=== PATIENT | male | born 1960 | race African-American/Black ===

== ENCOUNTER 2017-01-22 03:13 | Inpatient (IN) | payer OTHER ==
--- NOTE | ~2017-01-22 | CO ---
Unit #: [id number] #: [id number] Patient: ANNEMARIE CORONADO [id number] [facility]. [place], [place] [address] [id number] I MR#: [id number] NAME: ANNEMARIE CORONADO ROOM: 576 Age: 56 Sex: M Admission Date: 01/22/2017 : 1960 Attending Physician: Martha Brady M.D. Primary Care Physician: Fer Wheeler M.D. CONSULTATION REPORT JOB NOTE: CC: [facility] CARDIOLOGY. REASON FOR CONSULTATION Nonsustained ventricular tachycardia. HISTORY OF PRESENT ILLNESS This is a 56-year-old male, who presented to the emergency room with a complaint of abdominal pain. He developed diffuse abdominal pain on Sunday night. He had nausea and was unable to eat or drink. He later vomited nonbloody emesis. He eventually came to the emergency room for evaluation, where he was found to have acute pancreatitis. There was elevation of his amylase and lipase levels. During the course of his stay, he had an 8-beat run of nonsustained ventricular tachycardia. The patient was unaware of palpitations. He did have a magnesium level that was low at 1.5. He denies history of hypertension, hyperlipidemia, or diabetes. He states he has occasional sharp substernal chest pain that is worse with cough and deep breathing. He also has chest pain when working, where he contributes to muscle pain. He is usually fairly active. Troponin is initially negative with no acute ischemic changes on his EKG. PAST MEDICAL HISTORY 1. Nicotine abuse. 2. ETOH abuse. 3. EGD/colonoscopy in 11/2016 with moderate prepyloric antral erosive gastritis. Dilatation of the distal esophagus mucosal ring. Mild diverticulosis. Moderate diffuse duodenitis. PAST SURGICAL HISTORY No previous surgeries. SOCIAL HISTORY The patient is . He works as a warehouse attendant. Smokes a half a pack of cigarettes daily since a teenager. He admits to drinking 12 to 14 beers a day. Denies illicit drug use. FAMILY HISTORY Mother at her early age from gunshot wound. Father had cancer. No coronary artery disease in his siblings. ALLERGIES No known drug allergies. HOME MEDICATIONS Unit #: [id number] #: [id number] Patient: ANNEMARIE CORONADO Protonix 40 mg daily. REVIEW OF SYSTEMS CONSTITUTIONAL: Negative for fever or chills. Has no weight gain or weight loss. HEENT: No headache. No vision changes or difficulty with swallowing. No dizziness. CARDIOVASCULAR: Has chest pain as described in the HPI. Unaware of palpitations. No paroxysmal nocturnal dyspnea or orthopnea. Denies syncope or near syncope. RESPIRATORY: Negative for dyspnea, cough, or hemoptysis. GASTROINTESTINAL: Positive for abdominal pain, nausea, and vomiting nonbloody emesis. No melena. EXTREMITIES: Negative for lower extremity edema. PHYSICAL EXAMINATION VITAL SIGNS: Blood pressure 147/85, heart rate 83, temperature 97.6, BMI 22. GENERAL: This is a pleasant 56-year-old male, who is in no acute respiratory distress. NEUROLOGIC: He is awake, alert, and oriented. There were no focal weaknesses. NECK: Trachea is midline. No thyromegaly or lymphadenopathy. No jugular venous distention. HEART: S1, S2. Heart sounds are normal. No murmurs, rubs, or clicks. Regular rate and rhythm. LUNGS: Clear without rales, rhonchi, or wheezes. ABDOMEN: Soft and nontender with bowel sounds are present. EXTREMITIES: Without leg edema. SKIN: Warm and dry. DIAGNOSTIC STUDIES LABORATORY RESULTS: Glucose 96, BUN 5, creatinine 0.8. Sodium 137, potassium 3.5, magnesium 1.5, amylase 149, and lipase 116, troponin less than 0.05. White count 8.5, hemoglobin 11.4, hematocrit 34.2, and platelet count is 189. IMAGING STUDIES: Diagnostic imaging of the abdomen shows common bile duct dilatation up to 11 mm. CARDIOVASCULAR STUDIES: EKG; normal sinus rhythm with a rate of 80 beats per minute, otherwise normal. IMPRESSION 1. Acute pancreatitis secondary to EtOH abuse. 2. Nonsustained ventricular tachycardia. 3. Atypical chest pain. 4. Hypomagnesemia. 5. Nicotine abuse. PLAN 1. Cardiology was consulted for ventricular tachycardia. Ventricular arrhythmias may be secondary to electrolyte imbalance. We will replace potassium and magnesium. 2. Because of the patient's heavy alcohol use, we will evaluate echocardiogram for alcoholic cardiomyopathy. 3. TSH and lipid profile will be obtained. 4. Plan for Lexiscan Cardiolite stress test in a.m. Unit #: [id number] #: [id number] Patient: ANNEMARIE CORONADO 5. Start on beta-iris for rate control. 6. Watch for EtOH withdrawal. 7. Encourage the patient to quit smoking and to quit alcohol abuse. 8. We will follow the patient with you. Thank you for allowing us to assist in this patient's care. Dictated by... Josey Lawson/sebastian TD: 01/24/2017 05:30 JOB #: [id number] Jana Jay M.D. CONSULTATION REPORT Page 1 of 1 X Jose Angel Grossman APRN X CONSULTATION REPORT
--- NOTE | ~2017-01-22 | US6 ---
[facility] A Service of [facility] RADIOLOGY TEXT RESULTS PATIENT: ANNEMARIE CORONADO LOCATION: Psychiatric 576-01 : [birth year] UNIT #: [id number] AGE: [address]: Martha Brady MD SEX: M ORDER DR: [id number] [facility] [address] [facility]. [place], [place] [address] [id number] I MR#: [id number] Acc #: [id number] NAME: ANNEMARIE CORONADO : 1960 SEX: M STUDY DATE/TIME: 01/22/2017 16:08 UNIT: Psychiatric ROOM: 6 STUDY DESCRIPTION: US Abdominal Limited Attending Physician: Martha Brady M.D. Ordering Physician: Pierre Del Toro M.D. Primary Care Physician: Fer Wheeler M.D. MEDICAL IMAGING REPORT This report is preliminary unless electronic signature is present EXAM Right upper quadrant abdominal ultrasound, 01/22/2017 HISTORY Abdominal pain with nausea and vomiting for [address] abdomen and pelvis with contrast 05/07/2011. FINDINGS Portions of the pancreas are obscured by gas but the visualized pancreas appears normal. Pancreatic duct caliber is just within normal limits, 4 mm. The liver demonstrates normal echotexture without focal or suspicious abnormality. Liver size is within normal limits measuring approximate 16.6 cm in long axis. Gallbladder appears free of shadowing stone, sludge, wall thickening, or pericholecystic fluid. The common bile duct appears dilated up to 11 mm, but no definite choledocholithiasis is seen. The right kidney measures 11.0 cm in length without focal cortical lesion, shadowing stone or hydronephrosis. Intrahepatic IVC is obscured. Trace peripelvic ascites is thought to be present. IMPRESSION 1. The common bile duct is abnormally dilated up to 11 mm but no obstructing etiology is seen. If the patient has symptoms referable to the right upper quadrant and abnormal liver function test consider correlation to ERCP or MRCP. 2. The gallbladder appears unremarkable. 3. Trace perihepatic ascites. [facility] A Service of [facility] RADIOLOGY TEXT RESULTS PATIENT: ANNEMARIE CORONADO LOCATION: Psychiatric 576-01 : [birth year] UNIT #: [id number] AGE: [address]: Martha Brady MD SEX: M ORDER DR: Dictated by... Joyce Matthews M.D. THIS IS AN ELECTRONICALLY VERIFIED REPORT Joyce Matthews M.D. at 01/23/2017 8:34 AM ROMAN/marlyn TD: 01/22/2017 21:24 JOB #: [id number] MEDICAL IMAGING REPORT Page 1 of 1 COPY
--- NOTE | ~2017-01-22 | ST ---
Unit #: [id number] #: [id number] Patient: ANNEMARIE CORONADO [id number] [address] [id number] I MR#: [id number] NAME: ANNEMARIE CORONADO : 1960 SEX: M STUDY DATE/TIME: 01/24/2017 UNIT: [facility] ROOM: 576 STUDY DESCRIPTION: Stress Test Attending Physician: Martha Brady M.D. Primary Care Physician: Fer Wheeler M.D. CARDIOLOGY REPORT REASON FOR TESTING Chest pain. DESCRIPTION Baseline EKG shows normal sinus rhythm. 0.4 mg of Lexiscan was injected per protocol followed by Cardiolite. During the testing, patient did complain of feeling shaky and some shortness of breath but denied any complaints of chest pain. There were no ST changes suggestive of ischemia. There was no ectopy. The test was stopped secondary to protocol completion. IMPRESSION 1. Negative EKG portion of a Lexiscan Cardiolite. 2. No ST-T wave changes suggestive of ischemia. 3. The patient did complain of shortness of breath and shakiness during the testing period but denied any complaints of chest pain. He had a normal blood pressure response. Lowest blood pressure was 119/83. Final blood pressure was 145/98. 4. Please correlate with nuclear images. Dictated by... Josey Akers M.D. LMW/df TD: 01/25/2017 06:59 JOB #: [id number] Unit #: [id number] #: [id number] Patient: ANNEMARIE CORONADO CARDIOLOGY REPORT Page 1 of 1 X Sandhya Lau APRN CARDIOLOGY REPORT
--- NOTE | ~2017-01-22 | CO ---
Unit #: [id number] #: [id number] Patient: ANNEMARIE CORONADO [id number] [address] [address] [id number] I MR#: [id number] NAME: ANNEMARIE CORONADO ROOM: 576 Age: 56 Sex: M Admission Date: 01/22/2017 : 1960 Attending Physician: Martha Brady M.D. Primary Care Physician: Fer Wheeler M.D. Consultation Date: 01/23/2017 CONSULTATION REPORT PRIMARY CARE PHYSICIAN Fer Wheeler M.D. REASON FOR CONSULTATION Acute pancreatitis. HISTORY OF PRESENT ILLNESS The patient is a very pleasant 56-year-old male who has presented with a 2-day history of nausea, vomiting, and progressively worsening upper abdominal pain. Initially, his lipase was noted to be 868. Abdominal ultrasound is notable for dilated common bile duct up to 11 mm without obstructing etiology. Incidentally, his liver function studies are within normal limits. His nausea has improved and he has been tolerating clear liquid diet. PAST MEDICAL HISTORY Significant for alcohol abuse, tobacco abuse, recent EGD and colonoscopy. EGD is notable for gastritis, positive for H. pylori infection. PAST SURGICAL HISTORY No significant past surgical history. ALLERGIES No known drug allergies. HOME MEDICATIONS Include pantoprazole and Aleve. FAMILY HISTORY Significant for colon cancer in his father. SOCIAL HISTORY The patient drinks a 12 pack of beer on a daily basis. Smokes half a pack of cigarettes a day. No history of any illicit drug use. REVIEW OF SYSTEMS Detailed review of systems is notable for nausea, vomiting, anorexia, and abdominal pain. No fever, chills, or weight loss. No hematemesis, melena, or hematochezia. The rest of the review of systems is negative. PHYSICAL EXAMINATION GENERAL: The patient is awake, alert, and oriented, resting in bed without any acute distress. Unit #: [id number] #: [id number] Patient: ANNEMARIE CORONADO VITAL SIGNS: Stable with a temperature of 99.2, blood pressure 138/89, heart rate 101, and respirations 16. HEENT: There is no pallor. No scleral icterus. No lymphadenopathy. No peripheral edema. CHEST: Clear to auscultation bilaterally. CARDIOVASCULAR: Regular rate and rhythm. ABDOMEN: Soft, nondistended, and tender, mostly upper abdomen with some guarding. DIAGNOSTIC STUDIES LABORATORY RESULTS: Complete metabolic panel showed normal BUN and creatinine, albumin 2.9, amylase 149 down from 620, and lipase 116 down from 868 initially. LFTs within normal limits. CBC is notable for a WBC of 8.5, hemoglobin 11.4, and platelet 199. IMAGING STUDIES: Abdominal ultrasound is notable for dilated common bile duct up to 11 mm without obstructive etiology. There is also trace perihepatic ascites. Gallbladder appears normal. CLINICAL IMPRESSION AND PLAN The patient with acute pancreatitis, most likely secondary to chronic alcohol abuse. Biliary etiology is unlikely as the patient's liver function studies are within normal limits. Importance of total and complete sobriety discussed with the patient. Regarding dilated common bile duct, it may be the result of the acute pancreatitis. However, we can follow up outpatient for further imaging or evaluation if needed. The patient and plan of care discussed in detail with Dr. Santiago. Further recommendations to follow. Thank you very much for asking us to see this patient. We appreciate the consult. Dictated by... Karlos Bernard APRN for Nicolle Davis/sebastian TD: 01/24/2017 14:41 JOB #: [id number] CONSULTATION REPORT Page 1 of 1 X X CONSULTATION REPORT
--- NOTE | ~2017-01-22 | TH ---
Unit #: [id number] #: [id number] Patient: ANNEMARIE CORONADO [id number] [address] [address] [id number] I MR#: [id number] NAME: ANNEMARIE CORONADO : 1960 SEX: M STUDY DATE/TIME: UNIT: [facility] ROOM: 576 STUDY DESCRIPTION: Nuclear Study Attending Physician: Martha Brady M.D. Primary Care Physician: Fer Wheeler M.D. CARDIOLOGY REPORT EXAM Lexiscan Cardiolite Stress Test - Nuclear Portion PROCEDURE Using technetium 99m labeled Cardiolite, rest and stress SPECT images were obtained. Multiple SPECT images were obtained in various views including horizontal and vertical long axis and short axis views of the left ventricle. Images were obtained by gated SPECT method. The patient was administered 10.70 mCi of Cardiolite at rest. The patient was administered 32.6 mCi of Cardiolite after Lexiscan infusion was completed. On the stress images, there is normal perfusion noted. The rest images show mild decreased isotope activity inferiorly consistent with soft tissue artifact. Comparing rest and stress images, there is no stress-induced ischemia noted. The left ventricular ejection fraction is calculated to be 49%. There is no focal wall motion abnormality seen. CONCLUSION 1. No stress-induced ischemia noted. 2. The left ventricular ejection fraction is calculated to be 49%. 3. There is no focal wall motion abnormality seen. 4. Normal Lexiscan Cardiolite stress test. 5. it of normal both at rest and post stress. Dictated by... Nicolle Barrow TD: 01/25/2017 06:18 JOB #: [id number] Unit #: [id number] #: [id number] Patient: ANNEMARIE CORONADO CARDIOLOGY REPORT Page 1 of 1 X Jana Jay MD <ELECTRONICALLY SIGNED> 05/05/17 [id number] CARDIOLOGY REPORT
--- NOTE | ~2017-01-22 | HP ---
Unit #: [id number] #: [id number] Patient: ANNEMARIE CORONADO [id number] [address] [address] [id number] I MR#: [id number] NAME: ANNEMARIE CORONADO ROOM: 71063 Age: 56 Sex: M Admission Date: 01/22/2017 : 1960 Attending Physician: Shima Yeh M.D. Primary Care Physician: Fer Wheeler M.D. HISTORY AND PHYSICAL CHIEF COMPLAINT Abdominal pain. HISTORY OF PRESENT ILLNESS Mr. Coronado is a 56-year-old -[place] male who presents to the ER for above. History is obtained from the patient and his significant other. The patient reportedly started feeling poorly early Sunday morning. The patient and his significant other stayed awake most of Sunday night and then slept most of Sunday day. While he was awake Sunday, he was drinking a large amount of beer which he admits to. He awakened approximately 3:30 Sunday morning and had about four hours worth of non-bloody emesis. He does admit to having diarrhea on Sunday but this has resolved. He developed increasing abdominal pain and this evening emesis continued to worsen. Thus, he presented to the emergency department. Upon presentation, vital signs were all relatively stable. The patient was found to have epigastric pain on exam and blood work reveals an elevated lipase of 868. The patient is being admitted for pancreatitis. The patient states he does drink rather significantly about a 12-pack of beer per day and has done so for many, many years. He does feel tremulous if he misses any doses of alcohol. PAST MEDICAL HISTORY 1. Gastritis and duodenitis. The patient underwent EGD and colonoscopy on November 17, 2016, per Dr. Santiago. He was found to have a distal esophageal ring that is now status post dilatation. He has moderate prepyloric antral erosive gastritis and moderate diffuse duodenitis. Colonoscopy was negative with the exception of diverticulosis. 2. Alcohol abuse. 3. Tobacco use. PAST SURGICAL HISTORY None. EGD and colonoscopy are as seen above. ALLERGIES No known drug allergies. MEDICATIONS Home medications include: 1. Pantoprazole 40 mg daily. 2. Aleve p.r.n. Unit #: [id number] #: [id number] Patient: ANNEMARIE CORONADO FAMILY HISTORY Significant for colon cancer in patient's father. SOCIAL HISTORY The patient, again, drinks a 12-pack of beer daily and does have tremulousness if he doesn't drink. He smokes about a half pack of cigarettes per day and has since age 21. He denies any illicit drug use. REVIEW OF SYSTEMS The patient denies any fever, vision change. Tremulous now, falls at home. Diarrhea has resolved. Denies any difficulty urinating, hematuria. Denies hematemesis though one episode of emesis was brown. He denies any hematochezia or melena. He is having some anterior chest pain that is worse with movement. Otherwise, ten point review of systems is negative. PHYSICAL EXAMINATION VITAL SIGNS: Temperature 98.2, blood pressure 149/779, pulse rate 72, respiratory rate 16. Oxygen saturation is in the high 90s on room air. GENERAL: The patient is awake, alert. He is oriented x3 and very pleasant. HEENT: Pupils equally round, reactive to light bilaterally. Anicteric sclerae. No conjunctival pallor. Oropharynx with mildly dry mucous membranes. No erythema or exudate. NECK: Supple. No lymphadenopathy, no thyromegaly, no JVD. HEART: Regular rate and rhythm without any murmur, rub or gallop. LUNGS: Clear to auscultation bilaterally without wheezes, rhonchi or crackles. ABDOMEN: Soft. It is diffusely tender, greatest in the epigastric region. There is a mild amount of guarding but no rebound. Nondistended. Hyperactive bowel sounds. EXTREMITIES: No cyanosis, clubbing, or edema. Pedal pulses 2/4. SKIN: Warm, moist without rash. NEUROLOGIC: Cranial nerves II-XII intact. Sensation, strength and deep tendon reflexes are grossly normal. Gait, however, was not assessed. PSYCHIATRIC: Appropriate affect. No suicidal or homicidal ideation. MUSCULOSKELETAL: No significant joint abnormalities noted on exam, i.e. no joint erythema or exudate. DIAGNOSTIC STUDIES LABORATORY: Lab work done in the emergency department reveals an elevated white blood cell count of 11.1, hemoglobin of 13.3, platelet count of 225,000. Sodium 137, potassium 3.7, chloride 101, bicarb 26, BUN 9, creatinine 1.1, glucose of 140. Again, lipase is elevated at 868 and amylase is 620. Albumin is normal at 4.0. Troponin is negative. CARDIOVASCULAR: EKG done in the emergency department does reveal small Q waves in II, III and AVF. Otherwise, normal sinus rhythm. ASSESSMENT 1. Acute alcohol-induced pancreatitis. 2. Alcohol abuse with high risk for withdrawal. 3. Gastritis. 4. Duodenitis. 5. Tobaccoism. PLAN Unit #: [id number] #: [id number] Patient: ANNEMARIE CORONADO 1. Will admit patient to telemetry. 2. Will make NPO except with ice chips sparingly and Librium. Will provide antiemetics, pain medications, recheck amylase and lipase in the morning. Will ask Dr. Santiago to see the patient given he is familiar with him. 3. Will place on CIWA protocol in addition to scheduled Librium 50 mg p.o. q.8 hours given I suspect alcohol withdrawal will occur. 4. IV PPI regarding gastritis and duodenitis. 5. Nicotine patch in regards to tobaccoism. 6. Lovenox for DVT prophylaxis. Dictated by Shima Yeh M.D. ELEAZAR/chandra TD: 01/22/2017 06:56 JOB #: [id number] HISTORY AND PHYSICAL Page 1 of 1 X Shima Yeh MD HISTORY AND PHYSICAL
--- NOTE | ~2017-01-22 | EKG ---
PATIENT: ANNEMARIE CORONADO UNIT #: [id number] Ventricular Rate: 62 BPM Atrial Rate: 62 BPM P-R Interval: 172 ms QRS Duration: 98 ms Q-T Interval: 398 ms QTC Calculation(Bezet): 403 ms P Kenvir: 66 degrees Calculated R Kenvir: 78 degrees Calculated T Kenvir: 62 degrees Diagnosis Line: Normal sinus rhythm with sinus arrhythmia Diagnosis Line: Normal ECG Diagnosis Line: No previous ECGs available Diagnosis Line: Confirmed by MANOHAR CHILD MD ([id number]) on 01/22/2017 Diagnosis Line: 10:48:56 PM INTERPRETING MD: MATEUSZ TIDWELL
--- NOTE | ~2017-01-22 | EKG ---
PATIENT: ANNEMARIE CORONADO UNIT #: [id number] Ventricular Rate: 80 BPM Atrial Rate: 80 BPM P-R Interval: 170 ms QRS Duration: 96 ms Q-T Interval: 352 ms QTC Calculation(Bezet): 405 ms P [place]: 39 degrees Calculated R [place]: 59 degrees Calculated T [place]: 54 degrees Diagnosis Line: Normal sinus rhythm Diagnosis Line: Normal ECG Diagnosis Line: When compared with ECG of 22-JAN-2017 03:44, Diagnosis Line: No significant change was found Diagnosis Line: Confirmed by MANOHAR CHILD MD ([id number]) on 01/23/2017 Diagnosis Line: 10:23:13 PM INTERPRETING MD: MATEUSZ TIDWELL
--- NOTE | ~2017-01-22 | DS ---
Unit #: [id number] #: [id number] Patient: ANNEMARIE CORONADO [id number] [address] [place], [place] [address] [id number] I MR#: [id number] NAME: ANNEMARIE CORONADO ROOM: 576 Age: 56 Sex: M Admission Date: 01/22/2017 : 1960 Discharge Date: 01/25/2017 Attending Physician: Martha Brady M.D. Primary Care Physician: Fer Wheeler M.D. DISCHARGE SUMMARY REASON FOR ADMISSION Abdominal pain. HISTORY OF PRESENT ILLNESS/HOSPITAL COURSE The patient is a very pleasant 56-year-old male with underlying history of alcohol abuse. He apparently had starting going on a drinking binge from the previous weekend prior to admission. Initially his vital signs were stable; however, his laboratory studies yielded an elevated lipase of 868. He was subsequently admitted for acute pancreatitis, likely alcohol induced. Consultation was placed to Dr. Santiago of gastroenterology service. The patient ultimately underwent ultrasound of his abdomen, as well, which revealed common bile duct dilatation. No obstruction was seen. Triglycerides did return back at 57. Through hospital course he was appropriately treated with IV fluids, pain control, PPI therapy. This morning his lipase is currently 43. His pain is now resolved. He has been able to tolerate diet well without any difficulty. While he was here, he was placed on a telemetry floor. It was noted on the January 22, 2017 that he did have an 8-beat run of nonsustained ventricular tachycardia. Consultation was placed to Dr. Jay of cardiology service. Recommended stress test evaluation, which he underwent. Nuclear portion did not reveal any stress-induced ischemia. Ejection fraction was noted to be approximately 49%. From a cardiac standpoint, as well as GI standpoint, the patient has now been cleared for discharge. Through hospital course he did not show any evidence of any DTs. He was maintained on Librium and Ativan while he was here. At time of discharge we will give him a prescription for PPI therapy, as well as beta-iris. I have encouraged him to abstain from ongoing alcohol abuse. He expresses understanding and agreement, and his was present at the bedside through his hospital course, as well. FINAL DISCHARGE DIAGNOSES 1. Acute alcohol-induced pancreatitis. 2. Abdominal pain secondary to number 1. 3. Alcohol abuse. 4. Prior history of gastritis/duodenitis. 5. Tobacco abuse. 6. Nonsustained ventricular tachycardia. Unit #: [id number] #: [id number] Patient: ANNEMARIE CORONDAO FINAL DISCHARGE MEDICATIONS 1. Librium 25 mg p.o. q.6 p.r.n. (#15 prescription given). 2. Lopressor 25 mg p.o. b.i.d. 3. Protonix 40 mg p.o. daily. FOLLOW UP Follow up with PCP in 7-10 days. DISCHARGE CONDITION Stable. DISCHARGE DISPOSITION Home. Dictated by... Nicolle Ha/torie TD: 01/26/2017 09:19 JOB #: [id number] DISCHARGE SUMMARY Page 1 of 1 X Martha Brady MD X DISCHARGE SUMMARY
[~2017-01-22 03:13] MED LIST: ALEVE220 M1 PO; ASPIRIN81 M2 PO; BIAXIN PO; FLAGYL250 M1 PO; PANTOPRAZOLE SO40 MG PO; PROTONIX PO
[2017-01-22 03:29] LABS: BASOPHIL% 0.2 % (0-2.5); DIFF IND NO; EOSINOPHIL% 0.2 % (0.0-7.0); HEMATOCRIT 39.8 % (38.0-50.0); HEMOGLOBIN 13.3 gm/dL (13.0-16.0); LYMPHOCYTE% 8.6 % (17.0-45.0); MEAN CELL VOLUME 93.6 FL (83-96); MEAN CORPUSCULAR HEMOGLOBIN 31.2 PG (28-34); MEAN CORPUSCULAR HGB CONC 33.3 g/dL (30-36); MEAN PLATELET VOLUME 7.9 FL (6.5-11.5); MONOCYTE# 0.8 X10e3 (0-1.0); MONOCYTE% 6.9 % (3.0-12.0); NEUTROPHIL# 9.3 X10e3 (1.5-7.1); NEUTROPHIL% 84.1 % (40-75); PLATELET COUNT 225 X10e3 (140-420); RED BLOOD COUNT 4.25 X10e (3.90-5.60); RED CELL DISTRIBUTION WIDTH 13.3 % (11.0-15.5); WHITE BLOOD COUNT 11.1 X10e3 (4.0-10.5)
[2017-01-22 03:40] LABS: POC - CKMB <1.0 ng/mL (0.0-7.9); POC - TROPONIN <0.05 ng/mL (<=0.05)
[2017-01-22 04:30] LABS: BILIRUBIN, DIRECT 0.1 mg/dL (0.0-0.2); BILIRUBIN,INDIRECT 0.8 mg/dL (0.0-0.9); BILIRUBIN,TOTAL 0.9 mg/dL (0.2-2.0); BUN/CREATININE RATIO 8.18; CALCIUM SERUM 9.2 mg/dL (8.4-10.2); CREATININE SERUM 1.1 mg/dL (0.6-1.4); GLOM FILT RATE Estimated 87.8 mL/min (>60); POTASSIUM 3.7 mmol/L (3.5-5.1); PROTEIN TOTAL SERUM 7.4 g/dL (6.0-8.3)
[2017-01-23 06:17] LABS: HEMATOCRIT 34.2 % (38.0-50.0); HEMOGLOBIN 11.4 gm/dL (13.0-16.0); MEAN CELL VOLUME 94.2 FL (83-96); MEAN CORPUSCULAR HEMOGLOBIN 31.5 PG (28-34); MEAN CORPUSCULAR HGB CONC 33.5 g/dL (30-36); MEAN PLATELET VOLUME 7.9 FL (6.5-11.5); RED BLOOD COUNT 3.63 X10e (3.90-5.60); RED CELL DISTRIBUTION WIDTH 13.4 % (11.0-15.5); WHITE BLOOD COUNT 8.5 X10e3 (4.0-10.5)
[2017-01-23 06:54] LABS: ALBUMIN SERUM 2.9 g/dL (3.5-5.0); BILIRUBIN,TOTAL 0.7 mg/dL (0.2-2.0); BUN/CREATININE RATIO 6.25; CALCIUM SERUM 8.1 mg/dL (8.4-10.2); CREATININE SERUM 0.8 mg/dL (0.6-1.4); GLOM FILT RATE Estimated 117.4 mL/min (>60); MAGNESIUM 1.5 mg/dL (1.6-3.0); PHOSPHOROUS 1.9 mg/dL (2.5-4.6); POTASSIUM 3.5 mmol/L (3.5-5.1); PROTEIN TOTAL SERUM 5.5 g/dL (6.0-8.3)
[2017-01-24 05:25] LABS: HEMATOCRIT 34.6 % (38.0-50.0); HEMOGLOBIN 11.5 gm/dL (13.0-16.0); MEAN CELL VOLUME 95.1 FL (83-96); MEAN CORPUSCULAR HEMOGLOBIN 31.6 PG (28-34); MEAN CORPUSCULAR HGB CONC 33.3 g/dL (30-36); MEAN PLATELET VOLUME 8.3 FL (6.5-11.5); RED BLOOD COUNT 3.64 X10e (3.90-5.60); RED CELL DISTRIBUTION WIDTH 13.4 % (11.0-15.5); WHITE BLOOD COUNT 7.5 X10e3 (4.0-10.5)
[2017-01-24 06:40] LABS: ALBUMIN SERUM 2.6 g/dL (3.5-5.0); ALKALINE PHOSPHATASE 56 U/L (32-92); ALT (SGPT) 11 U/L (10-40); AMYLASE 56 U/L (0-46); AST (SGOT) 17 U/L (10-42); BILIRUBIN,TOTAL 0.9 mg/dL (0.2-2.0); BLOOD UREA NITROGEN <5 mg/dL (9-23); BUN/CREATININE RATIO 5.55; CALCIUM SERUM 8.4 mg/dL (8.4-10.2); CARBON DIOXIDE 25 mmol/L (22-31); CHLORIDE 111 mmol/L (100-111); CREATININE SERUM 0.9 mg/dL (0.6-1.4); GLOM FILT RATE Estimated 111.8 mL/min (>60); GLUCOSE FASTING 103 mg/dL (70-110); LIPASE 49 U/L (22-51); MAGNESIUM 1.7 mg/dL (1.6-3.0); POTASSIUM 4.2 mmol/L (3.5-5.1); PROTEIN TOTAL SERUM 5.1 g/dL (6.0-8.3); SODIUM 139 mmol/L (135-145)
[2017-01-25 07:06] LABS: ALBUMIN SERUM 2.9 g/dL (3.5-5.0); ALKALINE PHOSPHATASE 57 U/L (32-92); ALT (SGPT) 10 U/L (10-40); AST (SGOT) 14 U/L (10-42); BILIRUBIN,TOTAL 0.7 mg/dL (0.2-2.0); CALCIUM SERUM 8.8 mg/dL (8.4-10.2); CARBON DIOXIDE 26 mmol/L (22-31); CHLORIDE 104 mmol/L (100-111); CREATININE SERUM 0.9 mg/dL (0.6-1.4); GLOM FILT RATE Estimated 111.8 mL/min (>60); GLUCOSE FASTING 94 mg/dL (70-110); LIPASE 43 U/L (22-51); MAGNESIUM 1.6 mg/dL (1.6-3.0); POTASSIUM 3.8 mmol/L (3.5-5.1); SODIUM 137 mmol/L (135-145)
[2017-01-25 07:08] LABS: BLOOD UREA NITROGEN <5 mg/dL (9-23); BUN/CREATININE RATIO 5.55
[2017-01-25] MEDS ORDERED: LIBRIUM25 MG PO (11:00)
[2017-01-25] MEDS ORDERED: LOPRESSOR PO (11:00)
== END 2017-01-25 11:35 | disposition home or self-care (01) | DRG 439 ==
LOC: CED 03:13 → CEDOF 05:35 → C5C 10:28
PROVIDERS: Emergency Medicine; Family Medicine; Internal Medicine; Nurse Practitioner
DX: K85.20 Alcohol induced acute pancreatitis without necrosis or infection (principal); I47.2 Ventricular tachycardia; K83.8 Other specified diseases of biliary tract; E83.42 Hypomagnesemia; F10.10 Alcohol abuse, uncomplicated; F17.210 Nicotine dependence, cigarettes, uncomplicated; K29.70 Gastritis, unspecified, without bleeding; K29.80 Duodenitis without bleeding; R07.89 Other chest pain
CPT/HCPCS: 36415; 76705; 78452; 80048; 80053; 80076; 82150; 82553; 83690; 83735; 84100; 84443; 84478; 84484; 85025; 85027; 93005; 93017; 93306; 96361; 96374; 96375; 99285; A9500; C9113; J1650; J2270; J2405; J2785; J3411; J3475

== ENCOUNTER 2017-01-27 15:58 | Emergency (ER) | payer OTHER ==
[2017-01-27 14:51] LABS: BASOPHIL% 0.8 % (0-2.5); DIFF IND NO; EOSINOPHIL% 0.6 % (0.0-7.0); HEMATOCRIT 35.3 % (38.0-50.0); HEMOGLOBIN 11.6 gm/dL (13.0-16.0); LYMPHOCYTE# 0.9 X10e3 (1.0-3.5); LYMPHOCYTE% 16.2 % (17.0-45.0); MEAN CELL VOLUME 93.8 FL (83-96); MEAN CORPUSCULAR HEMOGLOBIN 30.9 PG (28-34); MEAN CORPUSCULAR HGB CONC 32.9 g/dL (30-36); MEAN PLATELET VOLUME 7.4 FL (6.5-11.5); MONOCYTE# 0.4 X10e3 (0-1.0); MONOCYTE% 7.1 % (3.0-12.0); NEUTROPHIL# 4.1 X10e3 (1.5-7.1); NEUTROPHIL% 75.3 % (40-75); PLATELET COUNT 343 X10e3 (140-420); RED BLOOD COUNT 3.76 X10e (3.90-5.60); WHITE BLOOD COUNT 5.5 X10e3 (4.0-10.5)
[2017-01-27 15:18] LABS: ALBUMIN SERUM 3.3 g/dL (3.5-5.0); BILIRUBIN, DIRECT 0.1 mg/dL (0.0-0.2); BILIRUBIN,INDIRECT 0.3 mg/dL (0.0-0.9); BILIRUBIN,TOTAL 0.4 mg/dL (0.2-2.0); BUN/CREATININE RATIO 4.54; CALCIUM SERUM 9.2 mg/dL (8.4-10.2); CREATININE SERUM 1.1 mg/dL (0.6-1.4); GLOM FILT RATE Estimated 87.8 mL/min (>60); POTASSIUM 4.4 mmol/L (3.5-5.1); PROTEIN TOTAL SERUM 6.9 g/dL (6.0-8.3)
[2017-01-27 15:49] LABS: URINE SOURCE CLEAN CATCH
[2017-01-27 15:53] LABS: URINE APPEARANCE CLEAR; URINE BILIRUBIN NEG (NEG); URINE BLOOD NEG (NEG); URINE COLOR YELLOW; URINE GLUCOSE NEG (NEG); URINE KETONE TRACE (NEG); URINE LEUKOCYTE ESTERASE TRACE (NEG); URINE NITRATE NEG (NEG); URINE PROTEIN 1+ (NEG); URINE SPECIFIC GRAVITY 1.017 (1.003-1.035)
[2017-01-27 15:56] LABS: CULTURE INDICATED? YES; U HYALINE CASTS AUWI 0-2 /[LPF]; URBCS1 AUWI 0-2 /[HPF] (0-2); URINE BACTERIA AUWI NEG (NEGATIVE); URINE SQUAMOUS EPITHELIAL CELL OCC /[HPF]
[~2017-01-27 15:58] MED LIST changes: +LIBRIUM25 MG PO; +LOPRESSOR PO
== END 2017-01-27 18:20 | disposition home or self-care (01) ==
LOC: CED 15:58
PROVIDERS: Emergency Medicine
DX: R10.9 Unspecified abdominal pain (principal)
CPT/HCPCS: 36415; 80048; 80076; 81003; 82150; 83690; 85025; 87086; 96361; 96374; 96375; 99284; J1885; J2405